=== PATIENT | male | born 1985 | race Caucasian/White ===

== ENCOUNTER 2018-04-06 15:31 | Inpatient (IN) | payer MEDICAID ==
[~2018-04-06] VITALS: Ht 172.7 cm; Wt 98.9 kg
[2018-04-06 15:35] VITALS: Ht 172.7 cm; Wt 98.9 kg
[2018-04-06 16:32] LABS: microscopic required? YES; urine erythrocyte NEGATIVE (NEGATIVE)
[2018-04-06 16:36] LABS: BASOPHIL % 0.2 % (0-2); PLATELET COUNT 156 x10^3mcL (130-400); RED CELL DISTRIBUTION WIDTH 13.5 % (11.5-14.5)
[2018-04-06 17:05] LABS: T3 TOTAL 1.15 ng/mL
[2018-04-06] MEDS ORDERED: PEPTO BISM262 MG/11 (17:08)
[2018-04-06] MEDS ORDERED: ALKA-SELTZER H1 EACH (17:08)
[2018-04-06 17:22] LABS: FREE T4 0.8 ng/dL (0.76-1.46); FREE THYROXINE INDEX 2.2 ug/dL (1.4-4.5)
[2018-04-06 17:36] LABS: AMPHETAMINE QUAL UR NONE DETECTED
[2018-04-06 17:41] LABS: CHOLESTEROL/HDL RATIO 3.5; PHOSPHOROUS 3.5 mg/dL (2.5-4.9)
[2018-04-06 17:43] LABS: CK-MB 0.7 ng/mL (0-3.6)
[2018-04-06 17:52] LABS: ERYTHROCYTE SED RATE 13 mm/hr (0-15)
[2018-04-06 18:12] LABS: ALBUMIN 3.9 g/dL (3.4-5.0); ALKALINE PHOSPHATASE 71 U/L (46-116); ALT/SGPT 112 U/L (16-63); AST/SGOT 31 U/L (15-37); BILIRUBIN TOTAL 1.01 mg/dL (0.20-1.00); C REACTIVE PROTEIN 11.5 mg/dL (<=0.9); CALCIUM 8.4 mg/dL (8.5-10.1); CARBON DIOXIDE 29.4 mmol/L (21-32); GFR1 > 60 mL/min; GLUCOSE SERUM 106 mg/dL (74-106); TOTAL PROTEIN, SERUM 8.2 g/dL (6.4-8.2)
[2018-04-06 18:21] LABS: CHLORIDE SERUM 101 mmol/L (98-107); POTASSIUM SERUM 3.5 mmol/L (3.5-5.1); SODIUM SERUM 142 mmol/L (136-145)
[2018-04-06 18:39] VITALS: BP 109/37
[2018-04-06 19:30] VITALS: BP 105/48
[2018-04-06 20:58] VITALS: BP 121/65
[2018-04-07 05:37] VITALS: BP 134/66
[2018-04-07 07:03] LABS: CALCIUM 8.1 mg/dL (8.5-10.1); CARBON DIOXIDE 28.1 mmol/L (21-32); CHLORIDE SERUM 104 mmol/L (98-107); CREATININE SERUM 1.1 mg/dL (0.7-1.3); GFR1 > 60 mL/min; GLUCOSE SERUM 100 mg/dL (74-106); PHOSPHOROUS 2.2 mg/dL (2.5-4.9); SODIUM SERUM 141 mmol/L (136-145)
[2018-04-07 07:09] LABS: PLATELET COUNT 136 x10^3mcL (130-400); RED CELL DISTRIBUTION WIDTH 13.3 % (11.5-14.5)
[2018-04-07 07:10] LABS: BASOPHIL % 0 % (0-2)
[2018-04-07 10:28] VITALS: BP 107/61
[2018-04-07 13:47] VITALS: BP 121/69
[2018-04-07 17:30] VITALS: BP 114/62
[2018-04-07 20:29] VITALS: BP 122/62
[2018-04-08 04:48] VITALS: BP 123/66
[2018-04-08 06:42] LABS: BASOPHIL % 0.2 % (0-2); PLATELET COUNT 157 x10^3mcL (130-400); RED CELL DISTRIBUTION WIDTH 13.4 % (11.5-14.5)
[2018-04-08 06:54] LABS: CALCIUM 8.4 mg/dL (8.5-10.1); CARBON DIOXIDE 29.4 mmol/L (21-32); CHLORIDE SERUM 106 mmol/L (98-107); CREATININE SERUM 1.1 mg/dL (0.7-1.3); GFR1 > 60 mL/min; GLUCOSE SERUM 117 mg/dL (74-106); MAGNESIUM 2.3 mg/dL (1.8-2.4); PHOSPHOROUS 3.3 mg/dL (2.5-4.9); POTASSIUM SERUM 4.8 mmol/L (3.5-5.1); SODIUM SERUM 142 mmol/L (136-145)
[2018-04-08 06:59] LABS: CHOLESTEROL/HDL RATIO 3.8
[2018-04-08 09:47] VITALS: BP 123/66
[2018-04-08 09:52] VITALS: BP 111/75
== END 2018-04-08 12:54 | disposition home or self-care (01) | DRG 225 ==
LOC: ED 15:31 → DU 16:57 → MU 04-08 00:53
PROVIDERS: Specialist; Student in an Organized Health Care Education/Training Program; Surgery
PROC: 0DTJ4ZZ Resection of Appendix, Percutaneous Endoscopic Approach (ICD-10-PCS; principal; 2018-04-07 08:00)
DX: K35.80 Unspecified acute appendicitis (principal); N17.0 Acute kidney failure with tubular necrosis; E83.39 Other disorders of phosphorus metabolism; K76.0 Fatty (change of) liver, not elsewhere classified; N28.1 Cyst of kidney, acquired; E83.51 Hypocalcemia; R73.03 Prediabetes; J98.11 Atelectasis; E78.5 Hyperlipidemia, unspecified; E66.9 Obesity, unspecified; Z68.33 Body mass index [BMI] 33.0-33.9, adult
CPT/HCPCS: 82962; 83880; 84439; 94150; C9113; J0330; J0694; J0696; J1885; J2250; J2405; J2543; J2704; J3010; J3490; J7030

== ENCOUNTER 2018-05-24 13:33 | Emergency (ER) | payer MEDICAID ==
[~2018-05-24] VITALS: Ht 172.7 cm; Wt 99.3 kg
[~2018-05-24 13:33] MED LIST: ALKA-SELTZER H1 EACH; PEPTO BISM262 MG/11
[2018-05-24 13:44] VITALS: Ht 172.7 cm; Wt 99.3 kg
[2018-05-24 17:50] VITALS: BP 128/69
== END 2018-05-24 17:50 | disposition home or self-care (01) ==
LOC: ED 13:33
DX: S39.012A Strain of muscle, fascia and tendon of lower back, initial encounter (principal); X58.XXXA Exposure to other specified factors, initial encounter; Y93.89 Activity, other specified; Y92.89 Other specified places as the place of occurrence of the external cause; Y99.8 Other external cause status
CPT/HCPCS: J1885